=== PATIENT | male | born 1980 | race African-American/Black ===

== ENCOUNTER 2024-01-22 12:42 | Emergency (ER) | payer SELFPAY ==
[~2024-01-22] VITALS: Ht 177.8 cm; Wt 98.0 kg
[2024-01-22 12:48] VITALS: O2SAT 99
[2024-01-22 16:34] VITALS: BP 176/134; PULSE 62; RESP 18; TEMP 97.7
[2024-01-22] MEDS ORDERED: AMLO5TAB88 MT (16:34)
== END 2024-01-22 16:07 | disposition home or self-care (01) ==
LOC: ER 12:42
DX: J06.9 Acute upper respiratory infection, unspecified (principal); I10 Essential (primary) hypertension
CPT/HCPCS: 71045; 99283